=== PATIENT | male | born 1975 | race Caucasian/White ===

== ENCOUNTER 2021-11-12 08:32 | Emergency (ER) | payer OTHER ==
[~2021-11-12] VITALS: Ht 177.8 cm; Wt 122.5 kg
[2021-11-12] MEDS ORDERED: ATORVASTATIN CA20 MG PO (08:51)
[2021-11-12] MEDS ORDERED: BENAZEPRIL HCL40 MG PO (08:51)
[2021-11-12] MEDS ORDERED: NIFEDIPINE ER30 M1 PO (08:51)
[2021-11-12] MEDS ORDERED: KETO10TA2 PO (13:06)
== END 2021-11-12 13:15 | disposition home or self-care (01) ==
LOC: ER 08:32
DX: S20.212A Contusion of left front wall of thorax, initial encounter (principal); W22.03XA Walked into furniture, initial encounter; Y92.010 Kitchen of single-family (private) house as the place of occurrence of the external cause; I10 Essential (primary) hypertension; E78.00 Pure hypercholesterolemia, unspecified